=== PATIENT | male | born 1955 | race Caucasian/White ===

== ENCOUNTER 2019-09-02 12:51 | Outpatient (CLI) | payer OTHER, SELFPAY ==
--- NOTE | ~2019-09-02 | XR_ITS ---
EXAMINATION: XR fl inj shoulder RT - MR/CT DATE: 09/02/2019 13:59 INDICATION: Injury of right glenoid labrum. No prior dislocation or surgery. TECHNIQUE: A time-out was performed to verify the patient's name, date of , and procedure to b e performed. The procedure including the risks, benefits, and alternatives was discussed with the pat ient. Risks discussed included bleeding and infection. The patient understood the risks and agreed to proceed. The skin overlying the right glenohumeral joint was prepped and draped in usual sterile fas hion. Anesthetic was administered with 1% lidocaine subcutaneously. A 22 G needle was advanced unde r fluoroscopic guidance into the joint. Subsequently, injectate consisting of 12 mL of 1:200 Multiha nce, 1:4 1% lidocaine, and 1:4 Omnipaque 240 was instilled. The needle was removed and the entry sit e was cleaned and dressed. There were no immediate complications. Fluoroscopy exposure time was 0.7 minutes. The total number of images was 3. FINDINGS: Real-time fluoroscopy demonstrates the needle and contrast in the right glenohumeral joint. IMPRESSION: 1. Successful right glenohumeral joint injection of contrast for subsequent MR arthrography. Reviewed, dictated and finalized at location A.
--- NOTE | ~2019-09-02 | MR_ITS ---
EXAMINATION: MR shoulder RT w con DATE: 09/02/2019 15:28 INDICATION: Injury to the right glenoid labrum presenting with right shoulder pain and limited range of motion. TECHNIQUE: Magnetic resonance imaging (MRI) of the right shoulder was performed following intra-helga cular gadolinium contrast injection and without intravenous contrast. Details of the glenohumeral lora nt injection have been dictated separately. Sequences included axial T2-weighted FS FSE, axial T1-we ighted FS FSE, coronal oblique T1-weighted FS FSE, coronal oblique T2-weighted FSE, sagittal T2-weigh crow FS FSE, sagittal T1-weighted FSE, and ABER (abduction external rotation) T1-weighted FS FSE. COMPARISON: None. FINDINGS: Coracoacromial arch: The acromion undersurface is curved in morphology (type II) with small subacromial spurs. The coraco acromial ligament is normal. Mild acromioclavicular osteoarthritis. Rotator cuff: Mild supraspinatus tendinopathy. Partial-thickness articular sided tear involving up to one half of t he tendon thickness and extending proximally to centimeter AP along the superior facet and anterior m iddle facet footplates of the supraspinatus and conjoined portion of the supraspinatus and infraspina tus tendons. This is best appreciated on the Aber images. The more posterior infraspinatus and teres minor tendons are normal. The subscapularis tendon is normal. Normal rotator cuff muscle bulk and sig nal. Biceps tendon, glenoid labrum and glenohumeral cartilage: Long head of the biceps tendon is intact. There is a superior, anterior to posterior tear of the marcin oid labrum (SLAP tear) of the glenoid labrum which extends anteriorly from the 10:00 position of the posterior labrum to the 1:00 position of the anterosuperior labrum overlying a normal anterosuperior sublingual foramen. Mild partial thickness cartilage loss with smooth chondral surface with minimal s ubarticular edema along the posterosuperior rim of the glenoid. Bones and other: No fracture or pathologic marrow replacing process. IMPRESSION: 1. SLAP tear of the posterior superior to anterosuperior glenoid labrum. 2. Moderate severity partial-thickness articular sided tear of the long the footplate of the supraspi natus and conjoined portion of the supraspinatus and intraspinous tendons. 3. Mild glenohumeral osteoarthritis with small region of chondral malacia along the posterior superio r rim of the glenoid. Reviewed, dictated and finalized at location A. IMPRESSION: 1. SLAP tear of the posterior superior to anterosuperior glenoid labrum. 2. Moderate severity partial-thickness articular sided tear of the long the david tplate of the supraspinatus and conjoined portion of the supraspinatus and intr aspinous tendons. 3. Mild glenohumeral osteoarthritis with small region of chondral malacia along the posterior superior rim of the glenoid.
== END 2019-09-02 12:52 | disposition home or self-care (01) ==
LOC: ANHIMG 12:52
PROVIDERS: PCP Internal Medicine; Visit Provider Internal Medicine
DX: S43.431A Superior glenoid labrum lesion of right shoulder, initial encounter (principal); M19.011 Primary osteoarthritis, right shoulder; M75.101 Unspecified rotator cuff tear or rupture of right shoulder, not specified as traumatic; Y93.89 Activity, other specified
CPT/HCPCS: 23350; 73222; 77002; A9577; Q9966